=== PATIENT | male | born 1990 | race American Indian/Alaskan Native ===

== ENCOUNTER 2019-09-07 20:35 | Emergency (ER) | payer SELFPAY ==
[2019-09-07 21:14] VITALS: BP 115/72
--- NOTE | 2019-09-07 23:36 | Emergency Department Report ---
Chief Complaint: Extremity Problem,Nontraumatic Stated Complaint: BACK/KNEE PAIN NEED WORK EXCUSE Time Seen by Provider: 09/07/19 23:21 - HPI History of Present Illness: Patient is a 29-year-old male who presents emergency room with complaints of left knee pain that began 2 weeks ago. He denies any fall, injury, numbness, weakness, edema. He is ambulatory without difficulty. He has not seen anyone for this. He does not have a primary care doctor. He denies any past medical history. He denies any allergies to medications. He does not report any fever, nausea, vomiting, diarrhea, urinary symptoms. On patient's check-in he wrote "doctors excuse for knee/back pain." vitals are normal on exam: non toxic appearing, no acute distress no bony TTP of the left knee, no joint laxity, no erythema, no edema, FROM of the left knee without difficulty, no deformity, neurovascularly intact No trauma, no signs of deformity, no septic joint, no signs of gout, no DVT Patient is presenting with a non-medical emergency at this time, medical screening examination performed and there is no threat to life or limb Patient is presenting for a work excuse because he had to call out for work for his knee pain pt given referrals to PCP and orthopedic given strict return precautions - Exam Vital Signs: Vital Signs 09/07/19 21:13 Temperature 98.1 F Pulse Rate 83 Respiratory 20 Rate Blood Pressure 115/72 O2 Sat by Pulse 100 Oximetry MSE screening note: Focused history and physical exam performed. ED Disposition for MSE Clinical Impression: Knee pain Qualifiers: Chronicity: acute Laterality: left Qualified Code(s): M25.562 - Pain in left knee Disposition: Z-07 MED SCREENING EXAM-LEFT Condition: Stable Instructions: Arthralgia (ED) Additional Instructions: may take tylenol or ibuprofen as needed for discomfort. may use ice pack for 15 minutes at a time, elevation of the leg. follow up with a primary care doctor. follow up with an orthopedic doctor. return to the emergency room for any new or worsening symptoms. Referrals: LUISITO YEUNG MD [Staff Physician] - 2-3 Days [facility] [Outside] - 2-3 Days [facility] [Outside] - 2-3 Days STARR SELBY MD [Staff Physician] - 2-3 Days [facility] [Provider Group] - 2-3 Days Forms: Work/School Release Form(ED) Time of Disposition: 23:36 Print Language: UZBEK
== END 2019-09-07 23:45 | disposition left against medical advice (07) ==
LOC: ED 20:35
DX: M25.562 Pain in left knee (principal)
CPT/HCPCS: 99282

== ENCOUNTER 2019-09-19 07:04 | Emergency (ER) | payer SELFPAY ==
[2019-09-19] MEDS ORDERED: IBUPROFEN 800 MG TAB PO ONE (07:55)
[2019-09-19] MEDS ORDERED: ONDANSETRON 4 MG ODT TAB PO ONE (07:59)
[2019-09-19 08:26] LABS: Basophils % (Auto) 0.4 % (0.0-1.8); Eosinophils % (Auto) 0.1 % (0.0-4.3); Hematocrit 37.4 % (35.5-45.6); Hemoglobin 12.8 gm/dl (11.8-15.2); Lymphocytes # (Auto) 0.9 K/mm3 (1.2-5.4); Lymphocytes % (Auto) 35.3 % (13.4-35.0); Mean Corpuscular HGB Conc 34 % (32-34); Mean Corpuscular Volume 86 fl (84-94); Monocytes # (Auto) 0.3 K/mm3 (0.0-0.8); Monocytes % (Auto) 12.7 % (0.0-7.3); Platelet Count 114 K/mm3 (140-440); Red Blood Count 4.36 M/mm3 (3.65-5.03); Red Cell Distribution Width 13.3 % (13.2-15.2)
[2019-09-19 08:44] LABS: Alanine Aminotransferase 23 units/L (7-56); BUN/Creatinine Ratio 14; Blood Urea Nitrogen 17 mg/dL (9-20); Calcium 8.7 mg/dL (8.4-10.2); Hemolysis Index 3
--- NOTE | 2019-09-19 08:50 | XRay Report ---
Acute abdomen series 3 views 0825 INDICATION: Diarrhea COMPARISON: None FINDINGS: Lung reed are clear. No pneumoperitoneum is seen. Gas and stool are seen throughout the c olon. Nonspecific air-fluid levels are noted in nondilated colon. No small bowel dilatation is seen. I do not see an obvious obstructive pattern. The extreme lower pelvis is not visualized but I do not see obvious urinary tract calculi. Mild scoliosis is seen. Signer Name: Tushar Hagen MD Signed: 09/19/2019 8:46 AM Workstation Name: [id number]
[2019-09-19 09:06] VITALS: BP 121/76
--- NOTE | 2019-09-19 09:28 | Emergency Department Report ---
- General Chief Complaint: Nausea/Vomiting/Diarrhea Stated Complaint: FLU Time Seen by Provider: 09/19/19 07:54 Source: patient Mode of arrival: Ambulatory Limitations: No Limitations - History of Present Illness Initial Comments: This is a 29-year-old female nontoxic, well nourished in appearance, no acute signs of distress presents to the ED with c/o of productive cough, fever, chills, body aches, n/v/d, rhinorrhea, nasal congestion x4 days. Denies any abdominal pain. Patient describes productive cough as yellow mucus production. Patient denies any sick contacts. Patient denies any recent travels, long car, recent hospital stays. Patient denies any calf pain or calf tenderness. Patient denies any chest pain, short of breath, hemoptysis, numbness, tingling, headache or stiff neck. Patient denies any allergies or significant PMH. MD Complaint: cough, rhinorrhea, nasal congestion, other (n/v, fever) -: days(s) (4) Severity: mild Severity scale (0 -10): 3 Quality: aching Consistency: constant Improves With: nothing Worsens With: nothing Associated Symptoms: fever, chills, rhinorrhea, nasal congestion, cough, nausea, vomiting. denies: myalgias, diaphoresis, headache, sore throat, stiff neck, chest pain, shortness of breath, abdominal pain, diarrhea, dysuria, rash, confusion, right sweats, weight loss, epistaxis, hoarseness, ear pain Treatments Prior to Arrival: none - Related Data Previous Rx's Medication Instructions Recorded Last Taken Type Ibuprofen [Motrin] 600 mg PO Q8H PRN #20 tablet 09/19/19 Unknown Rx Ondansetron [Zofran Odt] 4 mg PO Q8HR PRN #20 tab.rapdis 09/19/19 Unknown Rx Allergies Allergy/AdvReac Type Severity Reaction Status Date / Time No Known Allergies Allergy Unverified 09/07/19 21:35 ED Review of Systems ROS: Stated complaint: FLU Other details as noted in HPI Constitutional: chills, fever Eyes: denies: eye pain, eye discharge, vision change ENT: congestion. denies: ear pain, throat pain Respiratory: cough. denies: shortness of breath, wheezing Cardiovascular: denies: chest pain, palpitations Endocrine: no symptoms reported Gastrointestinal: nausea, vomiting, diarrhea. denies: abdominal pain, constipation, hematemesis, melena, hematochezia Genitourinary: denies: urgency, dysuria Musculoskeletal: denies: back pain, joint swelling, arthralgia Skin: denies: rash, lesions Neurological: denies: headache, weakness, paresthesias Psychiatric: denies: anxiety, depression Hematological/Lymphatic: denies: easy bleeding, easy bruising ED Past Medical Hx - Past Medical History Previous Medical History?: No - Surgical History Past Surgical History?: No - Social History Smoking Status: Never Smoker Substance Use Type: None - Medications Home Medications: Home Medications Medication Instructions Recorded Confirmed Last Taken Type Ibuprofen [Motrin] 600 mg PO Q8H PRN #20 tablet 09/19/19 Unknown Rx Ondansetron [Zofran Odt] 4 mg PO Q8HR PRN #20 tab.rapdis 09/19/19 Unknown Rx ED Physical Exam - General Limitations: No Limitations General appearance: alert, in no apparent distress - Head Head exam: Present: atraumatic, normocephalic - Eye Eye exam: Present: normal appearance - ENT ENT exam: Present: normal exam, normal orophraynx - Neck Neck exam: Present: normal inspection, full ROM. Absent: tenderness, meningismus, lymphadenopathy - Respiratory Respiratory exam: Present: normal lung sounds bilaterally. Absent: respiratory distress, wheezes, rales, rhonchi, stridor, chest wall tenderness, accessory muscle use, decreased breath sounds, prolonged expiratory - Cardiovascular Cardiovascular Exam: Present: regular rate, normal rhythm, normal heart sounds. Absent: bradycardia, tachycardia, irregular rhythm, systolic murmur, diastolic murmur, rubs, gallop - GI/Abdominal GI/Abdominal exam: Present: soft, normal bowel sounds. Absent: distended, tenderness, guarding, rebound, rigid, diminished bowel sounds - Extremities Exam Extremities exam: Present: normal inspection, full ROM - Back Exam Back exam: Present: normal inspection, full ROM. Absent: tenderness, CVA tenderness (R), CVA tenderness (L), muscle spasm, paraspinal tenderness, vertebral tenderness, rash noted - Neurological Exam Neurological exam: Present: alert, oriented X3, normal gait - Psychiatric Psychiatric exam: Present: normal affect, normal mood - Skin Skin exam: Present: warm, dry, intact, normal color. Absent: rash ED Course Vital Signs 09/19/19 09/19/19 07:19 09:05 Temperature 100.4 F H 99.0 F Pulse Rate 82 78 Respiratory 16 14 Rate Blood Pressure 123/73 121/76 [Right] O2 Sat by Pulse 98 99 Oximetry - Reevaluation(s) Reevaluation #1: 09/19/19 09:28 Patient is speaking in full sentences with no signs of distress noted. ED Medical Decision Making - Lab Data Result diagrams: 09/19/19 08:13 09/19/19 08:13 - Medical Decision Making This is a 29-year-old male that presents with flu like symptoms. Patient is s table and was examined by me. Patient is stable and was examined by me. There is no abdominal tenderness. Negative signs of symptoms of appendicitis, cholecystitis or acute abdomen. Labs obtained. UA obtained. Xr abdomen/chest xray obtained and dictated by the radiologist. Patient is notified of the report with no questions noted by the patient. Vital signs are stable prior to discharge. Patient received Zofran and 1L Normal saline in the ED which patient stated symptoms has resovled and subsided. A by mouth challenge has been obtained and patient tolerated well with no nausea vomiting. Patient was instructed to increase hydration, rest and take Motrin for fever episodes. Patient was educated on supportive care as symptoms are above 48 hours. Vitals stable. Patient is nonfebrile and normal heart rate. Patient was instructed Follow-up with a primary care doctor in 3-5 days or if symptoms worsen and continue return to emergency room as soon as possible. At time time of discharg e, the patient does not seem toxic or ill in appearance. No acute signs of distress noted. Patient agrees to discharge treatment plan of care. No further questions noted by the patient. Critical care attestation.: If time is entered above; I have spent that time in minutes in the direct care of this critically ill patient, excluding procedure time. ED Disposition Clinical Impression: Influenza Disposition: DC-01 TO HOME OR SELFCARE Is pt being admited?: No Does the pt Need Aspirin: No Condition: Stable Instructions: Influenza (ED) Additional Instructions: Follow-up with a primary care doctor in 3-5 days or if symptoms worsen and continue return to emergency room as soon as possible. Increased rest, hydration, and take Motrin/Tylenol as prescribed for fever episode. Prescriptions: Ibuprofen [Motrin] 600 mg PO Q8H PRN #20 tablet PRN Reason: Pain/Fever Ondansetron [Zofran Odt] 4 mg PO Q8HR PRN #20 tab.rapdis PRN Reason: Nausea Referrals: PRIMARY CARE, [Primary Care Provider] - 3-5 Days LUISITO YEUNG MD [Staff Physician] - 3-5 Days [facility] [Outside] - 3-5 Days Forms: Work/School Release Form(ED)
== END 2019-09-19 09:41 | disposition home or self-care (01) ==
LOC: ED 07:04
DX: J11.1 Influenza due to unidentified influenza virus with other respiratory manifestations (principal); R52 Pain, unspecified; R09.81 Nasal congestion; R50.9 Fever, unspecified; Z79.899 Other long term (current) drug therapy
CPT/HCPCS: 36415; 74022; 80053; 83690; 85025; Q0162

== ENCOUNTER 2021-03-07 07:47 | Emergency (ER) | payer SELFPAY ==
[2021-03-07 08:10] VITALS: BP 137/72
[2021-03-07 11:44] LABS: Alanine Aminotransferase 80 units/L (7-56); BUN/Creatinine Ratio 11; Blood Urea Nitrogen 9 mg/dL (9-20); Calcium 9.8 mg/dL (8.4-10.2); Hemolysis Index 37
--- NOTE | 2021-03-07 11:44 | Emergency Department Report ---
ED General Adult HPI - General Chief complaint: Medical Clearance Stated complaint: FB IN DRINK Time Seen by Provider: 03/07/21 10:21 Source: patient Mode of arrival: Ambulatory Limitations: No Limitations - History of Present Illness Initial comments: Patient is a 30-year-old male presents emergency room with complaints of nausea and vomiting that occurred yesterday. He states he had approximately 3 episodes of vomiting. He states he was having some abdominal cramping. He has been able to tolerate liquid intake today. He has had no episodes of vomiting today. He states that yesterday he ate at [employer]. He states that there may have possi deondre been mold in his ice for his drink per patient. He denies any diarrhea, hematochezia, melena, hematemesis, fever, chills, body aches, urinary symptoms. No past medical history. No allergies to medications. - Related Data Previous Rx's Medication Instructions Recorded Last Taken Type Ibuprofen [Motrin] 600 mg PO Q8H PRN #20 tablet 09/19/19 Unknown Rx Ondansetron [Zofran Odt] 4 mg PO Q8HR PRN #20 tab.rapdis 09/19/19 Unknown Rx Ondansetron [Zofran Odt] 4 mg PO Q8HR PRN #10 tab.rapdis 03/07/21 Unknown Rx Allergies Allergy/AdvReac Type Severity Reaction Status Date / Time No Known Allergies Allergy Verified 03/07/21 08:07 ED Review of Systems ROS: Stated complaint: FB IN DRINK Other details as noted in HPI Comment: All other systems reviewed and negative ED Past Medical Hx - Past Medical History Previous Medical History?: No - Surgical History Additional Surgical History: HAND AND LEG A CHILD - Social History Smoking Status: Never Smoker Substance Use Type: None - Medications Home Medications: Home Medications Medication Instructions Recorded Confirmed Last Taken Type Ibuprofen [Motrin] 600 mg PO Q8H PRN #20 tablet 09/19/19 Unknown Rx Ondansetron [Zofran Odt] 4 mg PO Q8HR PRN #20 tab.rapdis 09/19/19 Unknown Rx Ondansetron [Zofran Odt] 4 mg PO Q8HR PRN #10 tab.rapdis 03/07/21 Unknown Rx ED Physical Exam - General Limitations: No Limitations General appearance: alert, in no apparent distress - Head Head exam: Present: atraumatic, normocephalic - Eye Eye exam: Present: normal appearance - ENT ENT exam: Present: mucous membranes moist - Respiratory Respiratory exam: Present: normal lung sounds bilaterally. Absent: respiratory distress, wheezes, rales, rhonchi, stridor, chest wall tenderness, accessory muscle use, decreased breath sounds, prolonged expiratory - Cardiovascular Cardiovascular Exam: Present: regular rate, normal rhythm, normal heart sounds. Absent: systolic murmur, diastolic murmur, rubs, gallop - Neurological Exam Neurological exam: Present: alert, oriented X3 - Psychiatric Psychiatric exam: Present: normal affect, normal mood - Skin Skin exam: Present: warm, dry, intact ED Course Vital Signs 03/07/21 08:09 Temperature 98.3 F Pulse Rate 82 Respiratory 16 Rate Blood Pressure 137/72 O2 Sat by Pulse 99 Oximetry ED Medical Decision Making - Lab Data Result diagrams: 03/07/21 10:28 03/07/21 10:28 Lab Results 03/07/21 03/07/21 Range/Units 10:28 10:28 WBC 5.1 (4.5-11.0) K/mm3 RBC 4.64 (3.65-5.03) M/mm3 Hgb 13.4 (11.8-15.2) gm/dl Hct 40.3 (35.5-45.6) % MCV 87 (84-94) fl MCH 29 (28-32) pg MCHC 33 (32-34) % RDW 14.7 (13.2-15.2) % Plt Count 260 (140-440) K/mm3 Lymph % (Auto) 39.5 H (13.4-35.0) % [place] % (Auto) 6.1 (0.0-7.3) % Eos % (Auto) 0.9 (0.0-4.3) % Baso % (Auto) 0.4 (0.0-1.8) % Lymph # (Auto) 2.0 (1.2-5.4) K/mm3 [place] # (Auto) 0.3 (0.0-0.8) K/mm3 Eos # (Auto) 0.0 (0.0-0.4) K/mm3 Baso # (Auto) 0.0 (0.0-0.1) K/mm3 Seg Neutrophils % 53.1 (40.0-70.0) % Seg Neutrophils # 2.7 (1.8-7.7) K/mm3 Sodium 140 (137-145) mmol/L Potassium 4.5 (3.6-5.0) mmol/L Chloride 101.1 (98-107) mmol/L Carbon Dioxide 28 (22-30) mmol/L Anion Gap 15 mmol/L BUN 9 (9-20) mg/dL Creatinine 0.8 (0.8-1.3) mg/dL Estimated GFR > 60 ml/min BUN/Creatinine Ratio 11 % Glucose 134 H (75-100) mg/dL Calcium 9.8 (8.4-10.2) mg/dL Total Bilirubin 0.60 (0.1-1.2) mg/dL AST 48 H (5-40) units/L ALT 80 H (7-56) units/L Alkaline Phosphatase 78 (35-129) units/L Total Protein 7.5 (6.3-8.2) g/dL Albumin 4.0 (3.9-5) g/dL Albumin/Globulin Ratio 1.1 % Lipase 28 (13-60) units/L - Medical Decision Making Patient is a 30-year-old male presents emergency room with complaints of nausea and vomiting that occurred yesterday. He states he had approximately 3 episodes of vomiting. He states he was having some abdominal cramping. He has been able to tolerate liquid intake today. He has had no episodes of vomiting today. He states that yesterday he ate at [employer]. He states that there may have possibly been mold in his ice for his drink per patient. He denies any diarrhea, hematochezia, melena, hematemesis, fever, chills, body aches, urinary symptoms. No past medical history. No allergies to medications. Vitals are stable. Patient has no abdominal tenderness on exam, no guarding, no rebound, no rigidity, no peritoneal signs. Labs with very mildly elevated glucose, AST, ALT. Patient is currently asymptomatic. He is not having vomiting or diarrhea at this time. He is able to tolerate p.o. intake. Discussed all results with patient and answer questions. Discussed the importance of outpatient primary care and GI follow-up. Advised to be reexamined in the next 2 days. Discussed return precautions with patient. Advised patient Please take medication as prescribed as needed. Increase your fluid intake. Eat a bland liquid diet and slowly advance your diet as tolerated. Follow-up with a primary care doctor. Follow- up with a GI doctor. you need to have repeat labs done by an outpatient provider. Return to emergency room for any new or worsening symptoms. Please avoid alcohol use or NSAID use such as ibuprofen and Aleve. Critical care attestation.: If time is entered above; I have spent that time in minutes in the direct care of this critically ill patient, excluding procedure time. ED Disposition Clinical Impression: Abdominal cramping, Elevated LFTs, Elevated glucose level Nausea & vomiting Qualifiers: Vomiting type: unspecified Vomiting Intractability: non-intractable Qualified Code(s): R11.2 - Nausea with vomiting, unspecified Disposition: HOME / SELF CARE / HOMELESS Is pt being admited?: No Does the pt Need Aspirin: No Condition: Stable Instructions: Nausea and Vomiting, Adult Additional Instructions: Please take medication as prescribed as needed. Increase your fluid intake. Eat a bland liquid diet and slowly advance your diet as tolerated. Follow-up with a primary care doctor. Follow-up with a GI doctor. you need to have repeat labs done by an outpatient provider. Return to emergency room for any new or worsening symptoms. Please avoid alcohol use or NSAID use such as ibuprofen and Aleve. Prescriptions: Ondansetron [Zofran Odt] 4 mg PO Q8HR PRN #10 tab.rapdis PRN Reason: nausea/vomiting Referrals: LUISITO YEUNG MD [Staff Physician] - 3-5 Days [facility] [Provider Group] - 3-5 Days [facility] [Provider Group] - 3-5 Days Time of Disposition: 12:08 Print Language: IRANIAN
[2021-03-07 12:01] LABS: Basophils % (Auto) 0.4 % (0.0-1.8); Eosinophils % (Auto) 0.9 % (0.0-4.3); Hematocrit 40.3 % (35.5-45.6); Hemoglobin 13.4 gm/dl (11.8-15.2); Lymphocytes % (Auto) 39.5 % (13.4-35.0); Mean Corpuscular HGB Conc 33 % (32-34); Mean Corpuscular Volume 87 fl (84-94); Monocytes # (Auto) 0.3 K/mm3 (0.0-0.8); Monocytes % (Auto) 6.1 % (0.0-7.3); Platelet Count 260 K/mm3 (140-440); Red Blood Count 4.64 M/mm3 (3.65-5.03); Red Cell Distribution Width 14.7 % (13.2-15.2)
== END 2021-03-07 12:25 | disposition home or self-care (01) ==
LOC: ED 07:47
DX: R11.2 Nausea with vomiting, unspecified (principal); R10.9 Unspecified abdominal pain; R73.09 Other abnormal glucose; R79.89 Other specified abnormal findings of blood chemistry; Z79.899 Other long term (current) drug therapy; Z98.890 Other specified postprocedural states
CPT/HCPCS: 36415; 80053; 83690; 85025